=== PATIENT | male | born 1990 | race Caucasian/White ===

== ENCOUNTER 2017-02-15 13:30 | Emergency (ER) | payer OTHER ==
[2017-02-15 13:39] VITALS: BMI 27.4
[2017-02-15 13:40] VITALS: PULSE 78; TEMP 98.7; O2SAT 98
--- NOTE | 2017-02-15 14:21 | RAD ---
Left hand three views History: Trauma. Comparison: None available. Findings: No evidence of acute displaced fracture or dislocation. Impression: Negative acute. If pain persists, consider MRI.
--- NOTE | 2017-02-15 14:24 | C.PDOC ---
History Of Present Illness 26 y/o male presents to ED with complaints of left hand pain s/p injury during work. Patient states this morning he was at work and drill fell on left hand. Patient denies change in sensation, numbness, tingling or any other complaints at this time. Patient is right hand dominant. Time Seen by Provider: 02/15/17 13:43 Chief Complaint (Nursing): Finger,Hand,&Wrist History Per: Patient History/Exam Limitations: no limitations Onset/Duration Of Symptoms: Hrs Current Symptoms Are (Timing): Still Present Quality: "Pain" Past Medical History Reviewed: Historical Data, Nursing Documentation, Vital Signs Vital Signs: Last Vital Signs Temp 98.7 F 02/15/17 13:39 Pulse 78 02/15/17 15:35 Resp 16 02/15/17 15:35 BP 132/85 02/15/17 15:35 Pulse Ox 98 02/15/17 15:35 - Medical History PMH: HTN (not on meds) Family History: States: Unknown Family Hx - Social History Hx Tobacco Use: No Hx Alcohol Use: No Hx Substance Use: No - Immunization History Hx Tetanus Toxoid Vaccination: No Hx Influenza Vaccination: No Hx Pneumococcal Vaccination: No Review Of Systems Except As Marked, All Systems Reviewed And Found Negative. Musculoskeletal: Positive for: Hand Pain Skin: Negative for: Rash Neurological: Negative for: Weakness, Numbness Physical Exam - Physical Exam Appears: Non-toxic, No Acute Distress Skin: Normal Color, Warm Head: Atraumatic, Normacephalic Eye(s): bilateral: Normal Inspection, EOMI Nose: Normal Oral Mucosa: Moist Chest: Symmetrical Respiratory: No Accessory Muscle Use Extremity: No Normal ROM (decreaesd secondary to pain), Tenderness (To second left metacarpal proximal phalanx), Capillary Refill (< 2 sec), No Deformity, No Swelling Extremity: Bilateral: Normal ROM Pulses: Left Radial: Normal, Right Radial: Normal Neurological/Psych: Oriented x3, Normal Motor, Normal Sensation ED Course And Treatment O2 Sat by Pulse Oximetry: 98 (RA) Pulse Ox Interpretation: Normal - Other Rad left hand X-Ray: Interpreted by Me, Viewed By Me Interpretation: No fracture or dislocation Progress Note: Finger splint applied by RN. Reevaluation Time: 14:15 Reassessment Condition: Improved Disposition - Disposition Referrals: Max Adan MD [Staff Provider] - Disposition: HOME/ ROUTINE Disposition Time: 14:22 Condition: STABLE Additional Instructions: Vaya a maurer mdico o la clnica en 1-3 wong sin falta, para mas evaluacin. Volver a la sania de emergencia en cualquier momento si los sntomas persisten o empeoran. Instructions: Finger Sprain (ED) Print Language: SAMMARINESE - Clinical Impression Clinical Impression: Finger contusion - Scribe Statement The provider has reviewed the documentation as recorded by the Scribmary Spears All medical record entries made by the Scribe were at my direction and personally dictated by me. I have reviewed the chart and agree that the record accurately reflects my personal performance of the history, physical exam, medical decision making, and the department course for this patient. I have also personally directed, reviewed, and agree with the discharge instructions and disposition.
[2017-02-15 15:36] VITALS: BP 132/85; RESP 16
== END 2017-02-15 15:35 | disposition home or self-care (01) ==
LOC: C.ER 13:30
DX: S60.022A Contusion of left index finger without damage to nail, initial encounter (principal); W22.8XXA Striking against or struck by other objects, initial encounter; Y93.89 Activity, other specified; Y92.69 Other specified industrial and construction area as the place of occurrence of the external cause; Y99.0 Civilian activity done for income or pay